=== PATIENT | male | born 1930 ===

== ENCOUNTER 2018-04-16 17:12 | Emergency (ER) | payer OTHER ==
[~2018-04-16] VITALS: Ht 167.6 cm; Wt 67.1 kg
[~2018-04-16 17:12] MED LIST: NOVOLIN N100 UNITS/ IJ; TENORMIN25 MG PO; [UNRECOGNIZED DRUG - REMARK]; [UNRECOGNIZED DRUG - REMARK]
[2018-04-16] MEDS ORDERED: ADULT ASPIRIN81 MG (17:51)
[2018-04-16] MEDS ORDERED: ISORDIL TITRADOS5 MG (17:51)
[2018-04-16] MEDS ORDERED: LANTUS SOL100 UNIT/1 (17:52)
[2018-04-16] MEDS ORDERED: ATORVASTATIN CA10 MG (17:52)
[2018-04-16] MEDS ORDERED: LASIX20 MG (17:53)
[2018-04-16] MEDS ORDERED: NITRO-TIME2.5 MG (17:53)
[2018-04-16] MEDS ORDERED: RANEXA500 MG (17:54)
[2018-04-16] MEDS ORDERED: GABAPENTIN100 MG (17:54)
== END 2018-04-16 22:36 | disposition designated cancer center or children's hospital (05) ==
LOC: ER 17:12
DX: R42 Dizziness and giddiness (principal); R06.02 Shortness of breath